=== PATIENT | male | born 1960 | race Caucasian/White ===

== ENCOUNTER 2022-10-21 08:40 | Day surgery (SDC) | payer BC, OTHER ==
[2022-10-21 09:13] LABS: Hematocrit 44.1 % (39.6-49.0)
[2022-10-21 09:18] VITALS: BMI 29.9
[2022-10-21 11:17] VITALS: BP 106/58; TEMP 97.2; O2SAT 96
== END 2022-10-21 10:44 | disposition home or self-care (01) ==
LOC: DS 08:40
PROVIDERS: ATTEND Internal Medicine Gastroenterology
DX: E83.110 Hereditary hemochromatosis (principal)
CPT/HCPCS: 36415; 85014; 85018

== ENCOUNTER 2024-01-27 09:03 | Day surgery (SDC) | payer OTHER ==
[2024-01-27 09:55] LABS: Hematocrit 42.5 % (39.6-49.0); Hemoglobin 14.8 g/dL (13.6-17.9)
[2024-01-27 10:29] VITALS: BMI 33.0
[2024-01-27 11:55] VITALS: BP 145/80; TEMP 97.6; O2SAT 98
== END 2024-01-27 11:20 | disposition home or self-care (01) ==
LOC: DS 09:03
PROVIDERS: ATTEND Internal Medicine Gastroenterology
DX: E83.110 Hereditary hemochromatosis (principal)
CPT/HCPCS: 36415; 85014; 85018; 99195

== ENCOUNTER 2024-08-16 07:46 | Day surgery (SDC) | payer OTHER ==
[2024-08-16 11:01] VITALS: BP 123/67; TEMP 97.5; O2SAT 98
== END 2024-08-16 09:49 | disposition home or self-care (01) ==
LOC: DS 07:46
PROVIDERS: ATTEND Internal Medicine Gastroenterology
DX: E83.110 Hereditary hemochromatosis (principal)
CPT/HCPCS: 36415; 85014; 85018; 99195

== ENCOUNTER 2025-03-21 07:13 | Day surgery (SDC) | payer OTHER ==
[2025-03-21 08:07] LABS: Hemoglobin 15.6 g/dL (13.6-17.9)
[2025-03-21 11:57] VITALS: BMI 31.6
[2025-03-21 12:09] VITALS: BP 131/86; TEMP 97.5; O2SAT 100
== END 2025-03-21 10:00 | disposition home or self-care (01) ==
LOC: DS 07:13
PROVIDERS: ATTEND Internal Medicine Gastroenterology
DX: E83.110 Hereditary hemochromatosis (principal)
CPT/HCPCS: 36415; 85014; 85018; 99195